=== PATIENT | female | born 1960 | race Caucasian/White ===

== ENCOUNTER 2016-12-05 10:57 | Emergency (ER) | payer OTHER ==
[~2016-12-05 10:57] MED LIST: FLA500 PO; LAC PO; LEVAQUIN750 MG PO; MOTRIN800 MG PO; PROVENTIL0.09 MG/A1 INH; ZOF4 PO
[2016-12-05 12:39] VITALS: BP 135/76
== END 2016-12-05 12:39 | disposition home or self-care (01) ==
LOC: ED 10:57
DX: J45.901 Unspecified asthma with (acute) exacerbation (principal)
CPT/HCPCS: J0171; J2930; J3475; J7030; J7613; J7644; Q0092

== ENCOUNTER 2017-08-19 07:43 | Emergency (ER) | payer OTHER ==
[~2017-08-19] VITALS: Ht 154.9 cm; Wt 85.3 kg
[2017-08-19 07:46] VITALS: Ht 154.9 cm; Wt 85.3 kg
[2017-08-19 09:11] VITALS: BP 123/59
== END 2017-08-19 09:11 | disposition home or self-care (01) ==
LOC: ED 07:43
DX: J45.901 Unspecified asthma with (acute) exacerbation (principal); Z90.49 Acquired absence of other specified parts of digestive tract
CPT/HCPCS: J7512; J7613; J7644

== ENCOUNTER 2018-10-15 08:40 | Emergency (ER) | payer OTHER ==
[~2018-10-15] VITALS: Ht 157.5 cm; Wt 86.2 kg
[2018-10-15 08:54] VITALS: Ht 157.5 cm; Wt 86.2 kg
[2018-10-15 09:25] LABS: CALCIUM 8.6 mg/dL (8.5-10.1); CARBON DIOXIDE 29.3 mmol/L (21-32); CHLORIDE SERUM 106 mmol/L (98-107); CREATININE SERUM 0.9 mg/dL (0.6-1.0); GFR1 > 60 mL/min; GLUCOSE SERUM 95 mg/dL (74-106); POTASSIUM SERUM 3.7 mmol/L (3.5-5.1); SODIUM SERUM 144 mmol/L (136-145)
[2018-10-15 09:29] LABS: PLATELET COUNT 213 x10^3mcL (130-400); RED CELL DISTRIBUTION WIDTH 13.6 % (11.5-14.5)
[2018-10-15 09:30] LABS: ALBUMIN 3.7 g/dL (3.4-5.0); ALKALINE PHOSPHATASE 92 U/L (46-116); ALT/SGPT 40 U/L (14-59); AST/SGOT 23 U/L (15-37); BILIRUBIN TOTAL 0.45 mg/dL (0.20-1.00); TOTAL PROTEIN, SERUM 7.9 g/dL (6.4-8.2)
[2018-10-15 11:28] VITALS: BP 125/69
== END 2018-10-15 11:28 | disposition home or self-care (01) ==
LOC: ED 08:40
DX: R10.32 Left lower quadrant pain (principal); R10.2 Pelvic and perineal pain; J45.909 Unspecified asthma, uncomplicated
CPT/HCPCS: 36415

== ENCOUNTER 2019-01-11 15:16 | Emergency (ER) | payer OTHER ==
[~2019-01-11] VITALS: Ht 152.4 cm; Wt 83.9 kg
[2019-01-11 15:25] VITALS: Ht 152.4 cm; Wt 83.9 kg
[2019-01-11 17:00] LABS: BASOPHIL % 0.7 % (0-2); PLATELET COUNT 207 x10^3mcL (130-400); RED CELL DISTRIBUTION WIDTH 13.6 % (11.5-14.5)
[2019-01-11 17:04] LABS: CALCIUM 8.6 mg/dL (8.5-10.1); CHLORIDE SERUM 104 mmol/L (98-107); CREATININE SERUM 0.9 mg/dL (0.6-1.0); GFR1 > 60 mL/min; GLUCOSE SERUM 109 mg/dL (74-106); POTASSIUM SERUM 3.9 mmol/L (3.5-5.1); SODIUM SERUM 142 mmol/L (136-145)
[2019-01-11 17:09] LABS: ALBUMIN 3.5 g/dL (3.4-5.0); ALKALINE PHOSPHATASE 89 U/L (46-116); ALT/SGPT 46 U/L (14-59); AST/SGOT 21 U/L (15-37); TOTAL PROTEIN, SERUM 7.3 g/dL (6.4-8.2)
[2019-01-11 19:08] VITALS: BP 104/79
== END 2019-01-11 19:40 | disposition home or self-care (01) ==
LOC: ED 15:16
PROVIDERS: Emergency Medicine
DX: R07.89 Other chest pain (principal); J45.909 Unspecified asthma, uncomplicated; Z90.49 Acquired absence of other specified parts of digestive tract; Z98.890 Other specified postprocedural states
CPT/HCPCS: J1885; J7620; Q0092